=== PATIENT | male | born 1950 | race Caucasian/White ===

== ENCOUNTER 2017-11-25 22:15 | Emergency (ER) | payer MEDICARE, BC ==
[~2017-11-25] VITALS: Ht 188 cm; Wt 124.7 kg
[2017-11-26] MEDS ORDERED: ACET500 (00:04)
[2017-11-26] MEDS ORDERED: BENZ100A PO (00:05)
[2017-11-26] MEDS ORDERED: B-Complex With1 EACH PO (00:05)
[2017-11-26] MEDS ORDERED: ALBU90OI INH (00:05)
[2017-11-26] MEDS ORDERED: ATOR80 PO (00:05)
[2017-11-26] MEDS ORDERED: CALC.25 PO (00:06)
[2017-11-26] MEDS ORDERED: Calcium Acetat667 MG PO (00:06)
[2017-11-26] MEDS ORDERED: CLOP75 PO (00:07)
[2017-11-26] MEDS ORDERED: [UNRECOGNIZED DRUG - OTHER] IJ (00:07)
[2017-11-26] MEDS ORDERED: EPOGEN IJ (00:07)
[2017-11-26] MEDS ORDERED: HYDACE25S PR (00:08)
[2017-11-26] MEDS ORDERED: HYDR1TAB94 PO (00:08)
[2017-11-26] MEDS ORDERED: INSULANPEN SC (00:08)
[2017-11-26] MEDS ORDERED: Humalog Mi100 UNIT/4 (00:09)
[2017-11-26] MEDS ORDERED: Isosorbide Mono60 MG PO (00:09)
[2017-11-26] MEDS ORDERED: LOSA50 PO (00:10)
[2017-11-26] MEDS ORDERED: MAGOXI400 PO (00:10)
[2017-11-26] MEDS ORDERED: NITR.6SL SL (00:11)
[2017-11-26] MEDS ORDERED: PREG150 PO (00:11)
[2017-11-26] MEDS ORDERED: METO25ER PO (00:11)
[2017-11-26] MEDS ORDERED: PROM25 PO (00:11)
[2017-11-26] MEDS ORDERED: PSEU120ER PO (00:12)
[2017-11-26] MEDS ORDERED: SEVEC800 (00:12)
[2017-11-26] MEDS ORDERED: WARF2.5 PO (00:13)
== END 2017-11-26 00:32 | disposition home or self-care (01) ==
LOC: ER 22:15
DX: T82.898A Other specified complication of vascular prosthetic devices, implants and grafts, initial encounter (principal); I10 Essential (primary) hypertension; E11.9 Type 2 diabetes mellitus without complications; I25.10 Atherosclerotic heart disease of native coronary artery without angina pectoris
CPT/HCPCS: 93990; 99284-25